=== PATIENT | female | born 1965 | race Two or more races ===

== ENCOUNTER 2022-06-26 14:35 | Emergency (ER) | payer MEDICAID ==
[~2022-06-26] VITALS: Ht 154.9 cm; Wt 101.5 kg
[~2022-06-26 14:35] MED LIST: ALBU18
[2022-06-26 15:35] VITALS: BP 126/68
[2022-06-26] MEDS ORDERED: KETOROLAC TROMETH 60MG/2ML VIAL IM ONE (16:15)
[2022-06-26] MEDS ORDERED: PRED20TA2 PO (16:32)
[2022-06-26] MEDS ORDERED: BACL10TA PO (16:32)
== END 2022-06-26 16:52 | disposition home or self-care (01) ==
LOC: ER 14:35
DX: M51.16 Intervertebral disc disorders with radiculopathy, lumbar region (principal)
CPT/HCPCS: 72100; 96372; 99283; J1885